=== PATIENT | female | born 1955 | race Two or more races ===

== ENCOUNTER 2018-10-22 11:00 | Emergency (ER) | payer OTHER ==
[2018-10-22 11:05] VITALS: BP 169/90; PULSE 73; RESP 17; TEMP 98.4; O2SAT 98; BMI 25.4
--- NOTE | 2018-10-22 11:49 | ED PDOC ---
HPI: Chest Pain Time Seen by Provider: 10/22/18 11:25 Chief Complaint (Nursing): Breast Problem Chief Complaint (Provider): Chest Pain History Per: Patient History/Exam Limitations: no limitations Onset/Duration Of Symptoms: Days (2 weeks ) Current Symptoms Are (Timing): Still Present Quality: "Pain" Additional Complaint(s): 63 year old female with a history of HTN presents to the ED for an evaluation of chest pain onset for 2 weeks. Patient reports of pain with palpation on the beast. She complains both breast hurt, right breast hurts more than the left breast. Otherwise, she denies pain with deep breaths, shortness of breath, swelling or mass. PMD: [place] (Non [facility] Provider) Against Medical Advice - AMA Patient Left Against Medical Advice: The patient declines admission to the hospital and wishes to leave the Emergency Department. This action is against my medical advice. This decision was made with informed refusal. The patient was told that admission to the hospital is necessary. Explanation of the reasons why were discussed. The risks of leaving were explained to the patient and include, but are not limited to, worsening of known or currently unknown conditions, permanent disability and from undiagnosed or untreated conditions. The patient has the capacity to make this informed decision and understands my explanation of the current medical problem and risks of leaving. The patient voluntarily accepts these risks and signed an AMA form documenting our conversation. The patient was given the opportunity to ask questions and reconsider. The patient was encouraged to return to the Emergency Department at any time for further care. Past Medical History Reviewed: Historical Data, Nursing Documentation, Vital Signs Vital Signs: Last Vital Signs Temp 98.4 F 10/22/18 11:03 Pulse 73 10/22/18 11:03 Resp 17 10/22/18 11:03 BP 169/90 H 10/22/18 11:03 Pulse Ox 98 10/22/18 11:03 - Medical History PMH: HTN - Surgical History Other surgeries: colon surgery - Family History Family History: States: Unknown Family Hx - Social History Current smoker - smoking cessation education provided: No Alcohol: None Drugs: Denies - Allergies Allergies/Adverse Reactions: Allergies Allergy/AdvReac Type Severity Reaction Status Date / Time No Known Allergies Allergy Verified 10/22/18 11:14 JEREMY Risk Score for UA/NSTEMI - JEREMY Risk Score Age > 64: NO 3 or more CAD Risk Factors: NO Known CAD (Stenosis greater than 50%): NO Aspirin use in past 7 days: NO Severe Angina: NO EKG ST changes greater than 0.5mm: NO Positive Cardiac Marker: NO JEREMY Score: 0 Risk %: 5% Review of Systems ROS Statement: Except As Marked, All Systems Reviewed And Found Negative Cardiovascular: Positive for: Chest Pain Respiratory: Negative for: Shortness of Breath Physical Exam - Reviewed Nursing Documentation Reviewed: Yes Vital Signs Reviewed: Yes - Physical Exam Appears: Positive for: Well, Non-toxic, No Acute Distress Head Exam: Positive for: ATRAUMATIC, NORMAL INSPECTION, NORMOCEPHALIC Skin: Positive for: Normal Color, Warm, Dry. Negative for: Rash Eye Exam: Positive for: Normal appearance, EOMI Neck: Positive for: Normal, Painless ROM, Supple. Negative for: Decreased ROM Cardiovascular/Chest: Positive for: Regular Rate, Rhythm, Other ([employer] was BEKA Sarkar ). Negative for: Chest Non Tender (Chest wall tenderness around the breast area; no mass), Murmur Respiratory: Positive for: Normal Breath Sounds. Negative for: Respiratory Distress Gastrointestinal/Abdominal: Positive for: Normal Exam, Soft. Negative for: Tenderness Back: Positive for: Normal Inspection Extremity: Positive for: Normal ROM. Negative for: Tenderness, Pedal Edema, Deformity Neurological/Psych: Positive for: Awake, Alert, Normal Tone, Oriented (x3) - ECG O2 Sat by Pulse Oximetry: 98 (RA) Pulse Ox Interpretation: Normal Medical Decision Making Medical Decision Making: Time: 1125 Plan: No indication of mammography or any imaging needed for chest pain. Patient needs a workup for chest pain for which she refuses. -- Scribe Attestation: Documented by Jennifer Donis, acting as a scribe for Carlito Martin MD Provider Scribe Attestation: All medical record entries made by the Scribe were at my direction and personally dictated by me. I have reviewed the chart and agree that the record accurately reflects my personal performance of the history, physical exam, medical decision making, and the department course for this patient. I have also personally directed, reviewed, and agree with the discharge instructions and disposition. Disposition - Clinical Impression Clinical Impression: Breast pain, Chest pain, Left against medical advice - Patient ED Disposition Is Patient to be Admitted: No Doctor Will See Patient In The: Office Counseled Patient/Family Regarding: Studies Performed, Diagnosis, Need For Followup - Disposition Referrals: [facility]Outside[facility] [Outside] Disposition: Against Medical Advice Disposition Time: 12:00 Condition: GOOD Additional Instructions: Follow up for mammography with your PCP in 1 week. GEE ZIMMERMAN, thank you for letting us take care of you today. Your provider was Carlito Martin MD and you were treated for B/L BREAST PAIN. The emergency medical care you received today was directed at your acute symptoms. If you were prescribed any medication, please fill it and take as directed. It may take several days for your symptoms to resolve. Return to the Emergency Department if your symptoms worsen, do not improve, or if you have any other problems. Please contact your doctor or call one of the physicians/clinics you have been referred to that are listed on the Patient Visit Information form that is included in your discharge packet. Bring any paperwork you were given at discharge with you along with any medications you are taking to your follow up visit. Our treatment cannot replace ongoing medical care by a primary care provider outside of the emergency department. Thank you for allowing the [facility] team to be part of your care today. Instructions: Chest Pain, Common Breast Problems, Leaving Against Medical Advice Forms: [employer] (Azeri) Print Language: COLOMBIAN
== END 2018-10-22 12:00 | disposition left against medical advice (07) ==
LOC: H.ER 11:00
DX: N64.4 Mastodynia (principal); R07.9 Chest pain, unspecified; I10 Essential (primary) hypertension